=== PATIENT | male | born 2000 | race Caucasian/White ===

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

== ENCOUNTER 2020-01-20 13:51 | Emergency (ER) | payer BC ==
[2020-01-20] MEDS ORDERED: LIDOCAINE 1%-EPI 1:100000 20 ML MDV SUBQ STA (14:08)
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
--- NOTE | 2020-01-20 14:34 | XRAY Report ---
PROCEDURE: Hand 3 View RT INDICATIONS: hand inj TECHNIQUE: 3 views of the hand(s) acquired. COMPARISON: Right wrist, 3 views, 12/20/2018. FINDINGS: Bones: There is a nondisplaced fracture at the base of the fifth metacarpal No suspicious bony lesion s. Soft tissues: No suspicious soft tissue calcifications. IMPRESSION: Nondisplaced fifth metacarpal base fracture. Reviewed by: Tc Martinez MD on 01/20/2020 2:33 PM PST Approved by: Tc Martinez MD on 01/20/2020 2:33 PM PST Station ID: [id number]
--- NOTE | 2020-01-20 14:58 | XRAY Report ---
PROCEDURE: Hand 3 View RT INDICATIONS: post reduction TECHNIQUE: 3 views of the hand(s) acquired. COMPARISON: X-ray right hand, 3 views, 01/20/2020. FINDINGS: Bones: Minimally displaced fifth metacarpal base fracture is present. No suspicious bony lesions. Soft tissues: No suspicious soft tissue calcifications. IMPRESSION: Minimally displaced fifth metacarpal base fracture. Reviewed by: Tc Martinez MD on 01/20/2020 2:57 PM PST Approved by: Tc Martinez MD on 01/20/2020 2:57 PM PST Station ID: [id number]
[2020-01-20 15:23] VITALS: BP 122/68
== END 2020-01-20 15:10 | disposition home or self-care (01) ==
LOC: ED 13:51
DX: S62.316A Displaced fracture of base of fifth metacarpal bone, right hand, initial encounter for closed fracture (principal); W23.0XXA Caught, crushed, jammed, or pinched between moving objects, initial encounter; Y93.K9 Activity, other involving animal care
CPT/HCPCS: 26605